=== PATIENT | male | born 1940 | race Caucasian/White ===

== ENCOUNTER 2020-08-31 10:56 | Outpatient (CLI) | payer MEDICARE, SELFPAY ==
[2020-08-31 11:46] LABS: Basophils Absolute Auto 0.1 K/mm3 (0.0-0.1); Basophils Percent Auto 0.5 % (0.2-1.2); Eosinophils Absolute Auto 0.3 K/mm3 (0-0.3); Eosinophils Percent Auto 2.6 % (0-4.4); Hematocrit 42.5 % (42.0-52.0); Hemoglobin 15.4 g/dL (14.0-18.0); Immature Granulocyte Absolute 0.05 K/mm3 (0.00-0.031); Immature Granulocyte Percent A 0.5 % (0-0.5); Lymphocytes Absolute Auto 2.68 K/mm3 (0.9-3.2); Lymphocytes Percent Auto 28.4 % (18.3-44.2); Mean Corpuscular HGB Conc 36.2 g/dl (32-36); Mean Corpuscular Volume 93.8 fl (80-100); Mean Platelet Volume 8.7 fl (7.4-10.4); Monocytes Absolute Auto 0.8 K/mm3 (0.1-0.6); Monocytes Percent Auto 8.4 % (2.6-8.5); Neutrophils Absolute Auto 5.6 K/mm3 (1.3-6.7); Neutrophils Percent Auto 59.6 % (45.5-73.1); Platelet Count Result 279 k/mm3 (150-375); Red Blood Count 4.53 M/mm3 (4.6-6.20); Red Cell Distribution Width 12.5 % (11.5-14.5); White Blood Count 9.5 K/mm3 (4.5-10.0)
[2020-08-31 11:59] LABS: Alanine Aminotransferase 19 U/L (4-50); Albumin Level 4.3 g/dL (3.5-5.1); Alkaline Phosphatase 80 U/L (38-126); Anion Gap 9 mmol/L (8-16); Aspartate Amino Transferase 27 U/L (17-59); Bilirubin,Total 0.9 mg/dL (0.2-1.3); Blood Urea Nitrogen 20 mg/dL (9-20); Calcium 9.3 mg/dL (8.4-10.2); Carbon Dioxide 32 mmol/L (22-30); Chloride 92 mmol/L (98-107); Cholesterol 211 mg/dL (0-200); Estimated Glomerular Filt Rate 53; Glucose 108 mg/dL (75-110); HDL Direct 84 mg/dL; Potassium 3.7 mmol/L (3.4-5.0); Sodium 133 mmol/L (137-145); Triglycerides 147 mg/dL (<150)
[2020-08-31 12:10] LABS: LDL Cholesterol Direct 105 mg/dL
== END 2020-08-31 10:57 | disposition home or self-care (01) ==
PROVIDERS: PCP Internal Medicine; Visit Provider Clinical Nurse Specialist
DX: I10 Essential (primary) hypertension (principal); Z12.5 Encounter for screening for malignant neoplasm of prostate
CPT/HCPCS: 36415; 80053; 80061; 84153; 85025; G0103

== ENCOUNTER 2020-11-04 15:14 | Emergency (ER) | payer MEDICARE, SELFPAY ==
[2020-11-04 15:15] VITALS: BP 155/117; PULSE 97; RESP 18; TEMP 37.2; O2SAT 97
--- NOTE | 2020-11-04 15:39 | ED.URI ---
HPI - URI/Sore Throat General Chief Complaint: Upper Respiratory Infection Stated Complaint: COUGH Time Seen by Provider: 11/04/20 15:39 Source: patient and RN notes reviewed Mode of arrival: ambulatory Limitations: no limitations History of Present Illness HPI Narrative: 79-year-old male presents concern for 5-day history of cough, fatigue, decreased appetite. Reports a Covid exposure last week. He denies fever, chills, sweats, body ache, loss of sense of taste or smell. Reports history of hypertension, denies tobacco use, history of breathing problems or heart disease MD elicited complaint: cough Related Data Home Medications Medication Instructions Recorded Confirmed amlodipine 5 mg PO DAILY 11/04/20 11/04/20 atenolol-chlorthalidone 25 tablet PO DAILY 11/04/20 11/04/20 lisinopril 20 mg PO DAILY 11/04/20 11/04/20 Allergies Allergy/AdvReac Type Severity Reaction Status Date / Time No Known Allergies Allergy Verified 11/04/20 15:46 Review of Systems Review of Systems: Narrative: CONSTITUTIONAL: Denies malaise, chills, sweats, or fever. Reports fatigue EYES: Denies visual changes, redness, or discharge. ENT: Reports rhinorrhea. Denies congestion, sinus pain, otalgia and sore throat. CARDIOVASCULAR: Denies chest pain, palpitations, or edema. RESPIRATORY: Reports cough. Denies dyspnea. GASTROINTESTINAL: Denies abdominal pain, nausea, vomiting, diarrhea SKIN: Denies rash or itching. MUSCULOSKELETAL: Denies myalgia. NEUROLOGIC: Denies headache. All systems reviewed & are unremarkable except as noted in HPI and below PMFSH Past Medical History Medical History (Updated 11/04/20 @ 15:53 by Christi Sidhu NP) Essential hypertension Surgical History Surgical History (Updated 08/03/20 @ 09:34 by Elsa Perez CMA) H/O eye surgery Family History Family History (Updated 06/23/19 @ 13:13 by DOCTOR UNKNOWN) Sibling Family history of arthritis Social History Social History Smoking status: Former smoker Smoking end date: 10/29/70 Alcohol intake: current Comments At time of signature, agree with nursing past medical, surgical, social and family history. There is no relevant family history pertinent to the presenting complaint Exam Narrative: Exam Narrative: GENERAL: Well-appearing, well-nourished, and in no acute distress. HEAD: Normocephalic EYES: PERRLA, conjunctivae clear ENT: Nares clear. Mucous membranes moist. NECK: Supple. No lymphadenopathy CHEST: Clear to auscultation, breath sounds equal. No wheezing, rhonchi, rales, or stridor. No respiratory distress, speaks in full sentences. HEART: Regular rate and rhythm. No murmur heard. SKIN: Warm, dry, no rash. NEURO: Alert and oriented x3. PSYCH: Normal mood and affect Course Course Emergency Course: Patient is aware of diagnosis, understands and agrees to treatment plan. Anticipatory guidance given. Patient agrees to follow-up as directed and is aware of reasons to seek care at the emergency department. Portions of this record may have been created with voice recognition software Vital Signs Vital signs: Reviewed. MDM - URI/Sore Throat MDM Narrative Medical decision making narrative: Differential diagnosis considered: Soria virus, strep pharyngitis, allergic rhinitis, upper respiratory tract infection, sinusitis, rhinosinusitis, nasopharyngitis. viral pharyngitis, otitis media, otitis externa, pneumonia, bronchitis, viral cough syndrome, viral syndrome, and influenza. Exam findings show no acute concerns or changes; patient is non-toxic appearing and is in no distress. Patient is appropriate for outpatient treatment and follow-up. Lab Data Attestation: I reviewed the patient's lab results. Critical Care Time Critical Care Time Critical Care Time: No Discharge Plan Discharge Clinical Impression: COVID-19, Cough Patient Disposition: Home, Self-Care Condition: Stable Instructions: COVID-19 (Coronavirus Disease 201
[2020-11-04 16:00] VITALS: BP 181/112
== END 2020-11-04 16:00 | disposition home or self-care (01) ==
PROVIDERS: Emergency Provider Nurse Practitioner; PCP Internal Medicine
DX: U07.1 COVID-19 (principal); I10 Essential (primary) hypertension; Z87.891 Personal history of nicotine dependence
CPT/HCPCS: 87426; 99213; C9803; G0463

== ENCOUNTER 2021-09-16 11:38 | Outpatient (CLI) | payer MEDICARE, SELFPAY ==
[2021-09-16 12:08] LABS: Hematocrit 44.6 % (42.0-52.0); Hemoglobin 16.1 g/dL (14.0-18.0); Immature Granulocyte Percent A 0.3 % (0-0.5); Mean Corpuscular HGB Conc 36.1 g/dl (32-36); Mean Corpuscular Hemoglobin 33.9 pg (26-34); Mean Corpuscular Volume 93.9 fl (80-100); Mean Platelet Volume 8.7 fl (7.4-10.4); Platelet Count Result 306 k/mm3 (150-375); Red Blood Count 4.75 M/mm3 (4.6-6.20); White Blood Count 8.9 K/mm3 (4.5-10.0)
[2021-09-16 12:09] LABS: Basophils Percent Auto 0.5 % (0.2-1.2); Eosinophils Absolute Auto 0.2 K/mm3 (0-0.3); Eosinophils Percent Auto 2.5 % (0-4.4); Immature Granulocyte Absolute 0.03 K/mm3 (0.00-0.031); Lymphocytes Absolute Auto 2.48 K/mm3 (0.9-3.2); Monocytes Absolute Auto 0.7 K/mm3 (0.1-0.6); Monocytes Percent Auto 7.7 % (2.6-8.5); Neutrophils Absolute Auto 5.4 K/mm3 (1.3-6.7)
[2021-09-16 12:20] LABS: Alanine Aminotransferase 17 U/L (4-50); Albumin Level 4.6 g/dL (3.5-5.1); Alkaline Phosphatase 73 U/L (38-126); Anion Gap 5 mmol/L (8-16); Aspartate Amino Transferase 26 U/L (17-59); Bilirubin,Total 0.8 mg/dL (0.2-1.3); Blood Urea Nitrogen 16 mg/dL (9-20); Calcium 9.7 mg/dL (8.4-10.2); Carbon Dioxide 31 mmol/L (22-30); Chloride 97 mmol/L (98-107); Cholesterol 221 mg/dL (0-200); Estimated Glomerular Filt Rate > 60; Glucose 103 mg/dL (65-110); HDL Direct 93 mg/dL; Sodium 133 mmol/L (137-145); Triglycerides 101 mg/dL (<150)
[2021-09-16 12:31] LABS: LDL Cholesterol Direct 105 mg/dL
== END 2021-09-16 11:39 | disposition home or self-care (01) ==
PROVIDERS: PCP Internal Medicine; Visit Provider Clinical Nurse Specialist
DX: I10 Essential (primary) hypertension (principal)
CPT/HCPCS: 36415; 80053; 80061; 85025

== ENCOUNTER 2022-09-25 12:54 | Outpatient (CLI) | payer MEDICARE, SELFPAY ==
[2022-09-25 19:53] LABS: Basophils Percent Auto 0.5 % (0.2-1.2); Eosinophils Absolute Auto 0.1 K/mm3 (0-0.3); Eosinophils Percent Auto 1.7 % (0-4.4); Hematocrit 45.7 % (42.0-52.0); Hemoglobin 15.7 g/dL (14.0-18.0); Immature Granulocyte Absolute 0.02 K/mm3 (0.00-0.031); Immature Granulocyte Percent A 0.3 % (0-0.5); Lymphocytes Absolute Auto 1.93 K/mm3 (0.9-3.2); Lymphocytes Percent Auto 25.9 % (18.3-44.2); Mean Corpuscular HGB Conc 34.4 g/dl (32-36); Mean Corpuscular Hemoglobin 33.1 pg (26-34); Mean Corpuscular Volume 96.4 fl (80-100); Mean Platelet Volume 9.4 fl (7.4-10.4); Monocytes Absolute Auto 0.7 K/mm3 (0.1-0.6); Monocytes Percent Auto 8.8 % (2.6-8.5); Neutrophils Absolute Auto 4.7 K/mm3 (1.3-6.7); Neutrophils Percent Auto 62.8 % (45.5-73.1); Platelet Count Result 309 k/mm3 (150-375); Red Blood Count 4.74 M/mm3 (4.6-6.20); Red Cell Distribution Width 12.7 % (11.5-14.5); White Blood Count 7.5 K/mm3 (4.5-10.0)
[2022-09-25 20:13] LABS: Alanine Aminotransferase 19 U/L (6-50); Albumin Level 4.3 g/dL (3.5-5.1); Alkaline Phosphatase 64 U/L (38-126); Anion Gap 8 mmol/L (8-16); Aspartate Amino Transferase 52 U/L (17-59); Bilirubin,Total 1.2 mg/dL (0.2-1.3); Blood Urea Nitrogen 18 mg/dL (9-20); Carbon Dioxide 29 mmol/L (22-30); Chloride 99 mmol/L (98-107); Cholesterol 217 mg/dL (0-200); Estimated Glomerular Filt Rate > 60; Glucose 95 mg/dL (65-110); HDL Direct 72 mg/dL; Potassium 4.6 mmol/L (3.4-5.0); Sodium 136 mmol/L (137-145); Triglycerides 73 mg/dL (<150)
[2022-09-25 20:24] LABS: LDL Cholesterol Direct 102 mg/dL
== END 2022-09-25 12:55 | disposition home or self-care (01) ==
LOC: ANHGOSHLAB 12:58
PROVIDERS: PCP Internal Medicine; Visit Provider Clinical Nurse Specialist
DX: I10 Essential (primary) hypertension (principal)
CPT/HCPCS: 36415; 80053; 80061; 85025

== ENCOUNTER 2023-01-03 18:13 | Observation (INO) | payer MEDICARE, SELFPAY ==
[2023-01-03] VITALS (10 sets, daily range): BP systolic 181–241; BP diastolic 91–112; PULSE 74–93; RESP 18–23; TEMP 36.6; O2SAT 96–99
--- NOTE | ~2023-01-03 | XR_ITS ---
EXAMINATION: XR chest 1V Exam Date/Time: 01/03/2023 20:55 WELL SERVICE PUMP EQUIPMENT OPERATOR HISTORY: Pt seen for hypertension, dizziness, headache. Comparison: None available. RESULT: Lines, tubes, and devices: None. Lungs and pleura: Senescent changes. Streaky subsegmental opacities in the right lung base. Calcifie d right midlung granuloma. Cardiomediastinal silhouette: Arch calcification. Dilated central pulmonary arteries as can be seen with only arterial hypertension. Calcified hilar nodes. Other: No acute osseous or upper abdominal finding. IMPRESSION: Subsegmental consolidation/atelectasis in the right lung base. Reviewed, dictated and finalized at location K. SERVICE PUMP EQUIPMENT OPERATOR
--- NOTE | ~2023-01-03 | CT_ITS ---
EXAMINATION: CT brain wo con DATE: 01/03/2023 20:58 INDICATION: hypertension, MERAZ . TECHNIQUE: Computed tomography (CT) of the head was performed without intravenous contrast. The mA wa s adjusted according to patient size. Iterative reconstruction technique was employed. The dose-lengt h product was 605.33 mGy-cm. COMPARISON: None. FINDINGS: No acute intracranial hemorrhage or extra-axial fluid collection. No hydrocephalus, mass, or herniation. No acute ischemic infarct. Unremarkable dural venous sinus attenuation. No acute osseous abnormality. Bilateral mastoid fluid, the remaining aerated spaces are clear. Mild atrophy and chronic white matter change. Atherosclerotic intracranial calcification. 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 Bilateral lens replacements. Spherical outpouching along the post erior aspect of the right globe with mixed density content including gas densities. IMPRESSION: No acute intracranial process. Focal outpouching along the posterior aspect of the right globe contai ethel gas densities, presumably related to prior ophthalmic procedure, correlate with history. Reviewed, dictated and finalized at location K. WALL SHEARER OPERATOR IMPRESSION: No acute intracranial process. Focal outpouching along the posterior aspect of the right globe containing gas densities, presumably related to prior ophthalmi c procedure, correlate with history.
--- NOTE | 2023-01-03 18:39 | ECG_ITS ---
Measurements Intervals [place] Rate: 87 P: 47 [place]: 184 QRS: -32 QRSD: 92 T: 46 QT: 350 QTc: 421 Interpretive Statements SINUS RHYTHM LEFT AXIS DEVIATION VOLTAGE CRITERIA FOR LVH CONSIDER INFERIOR INFARCT, AGE INDETERMINATE ANTEROSEPTAL INFARCT, AGE INDETERMINATE ABNORMAL ECG NO PREVIOUS ECG AVAILABLE FOR COMPARISON Electronically Signed On 01-04-2023 14:55:57 PAINTING WORKER by Michael Romo D.O.
[2023-01-03 19:09] LABS: Basophils Absolute Auto 0.1 K/mm3 (0.0-0.1); Basophils Percent Auto 0.5 % (0.2-1.2); Eosinophils Absolute Auto 0.1 K/mm3 (0-0.3); Eosinophils Percent Auto 0.9 % (0-4.4); Hematocrit 49.7 % (42.0-52.0); Hemoglobin 17.2 g/dL (14.0-18.0); Immature Granulocyte Absolute 0.06 K/mm3 (0.00-0.031); Immature Granulocyte Percent A 0.6 % (0-0.5); Lymphocytes Absolute Auto 2.44 K/mm3 (0.9-3.2); Lymphocytes Percent Auto 25.7 % (18.3-44.2); Mean Corpuscular HGB Conc 34.6 g/dl (32-36); Mean Corpuscular Hemoglobin 33.4 pg (26-34); Mean Corpuscular Volume 96.5 fl (80-100); Mean Platelet Volume 9.9 fl (7.4-10.4); Monocytes Absolute Auto 0.6 K/mm3 (0.1-0.6); Monocytes Percent Auto 6.5 % (2.6-8.5); Neutrophils Absolute Auto 6.2 K/mm3 (1.3-6.7); Neutrophils Percent Auto 65.8 % (45.5-73.1); Platelet Count Result 275 k/mm3 (150-375); Red Blood Count 5.15 M/mm3 (4.6-6.20); Red Cell Distribution Width 12.5 % (11.5-14.5); White Blood Count 9.5 K/mm3 (4.5-10.0)
[2023-01-03 19:18] LABS: Partial Thromboplastin Time 27.7 SECONDS (22.3-36.8); Prothrombin Time 12.7 Seconds (11.1-14.7)
[2023-01-03 19:27] LABS: Alanine Aminotransferase 20 U/L (6-50); Albumin Level 4.8 g/dL (3.5-5.1); Alkaline Phosphatase 72 U/L (38-126); Anion Gap 5 mmol/L (8-16); Aspartate Amino Transferase 26 U/L (17-59); Bilirubin,Total 0.9 mg/dL (0.2-1.3); Blood Urea Nitrogen 17 mg/dL (9-20); Calcium 9.2 mg/dL (8.4-10.2); Carbon Dioxide 30 mmol/L (22-30); Chloride 98 mmol/L (98-107); Estimated CRCL calculation 60 ml/min; Estimated Glomerular Filt Rate > 60; Glucose 118 mg/dL (65-110); Lipase 60 U/L (23-300); Potassium 3.7 mmol/L (3.4-5.0); Sodium 133 mmol/L (137-145)
[2023-01-03 19:36] LABS: Troponin I < 0.012 ng/mL (0.000-0.034)
--- NOTE | 2023-01-03 20:47 | ED.RECABL ---
HPI - Recheck/Abnormal Lab/Rx General Chief Complaint: Recheck/Abnormal Lab/Rx Stated Complaint: high blood pressure Time Seen by Provider: 01/03/23 19:36 History of Present Illness HPI narrative: Patient is an 82-year-old male with a history of hypertension presenting with high blood pressure. Patient states that earlier today they checked his blood pressure and his systolic was in the 230s. His states that it remained in the 230s for several hours so she became concerned for a stroke. States that he has had intermittent headaches and had an episode of dizziness yesterday. Currently, the patient denies any complaints. States he would like to go home. Denies headache, numbness or weakness, vision changes, slurred speech, gait difficulties, chest pain, shortness of breath, abdominal pain, nausea or vomiting, diarrhea, leg swelling. Related Data Home Medications Medication Instructions Recorded Confirmed atenolol 50 mg tablet 50 mg PO DAILY 01/04/23 01/04/23 lisinopril 40 mg tablet 40 mg PO DAILY 01/04/23 01/04/23 Allergies Allergy/AdvReac Type Severity Reaction Status Date / Time No Known Allergies Allergy Verified 09/27/22 10:06 Review of Systems Review of Systems: All systems reviewed & are unremarkable except as noted in HPI and below PMFSH Past Medical History Medical History Cataract Essential hypertension Surgical History Surgical History H/O cataract removal with insertion of prosthetic lens H/O eye surgery Family History Family History Sibling Family history of arthritis Social History Social History Smoking status: Never smoker Smoking end date: 10/29/70 Alcohol intake: current Drinks per week: 35 Substance use: never Substance use type: does not use Lack of Transportation: No Lack of Food: Never True Current Housing: I Have Housing Concerned About Future Housing: No Difficulty Paying Gas/Electric Bills: No Difficulty Paying for Meds: No Currently Unemployed: No Education: Bachelor's Degree Difficulty w/ Childcare or Family Care: No Living arrangements: with family Gender identity (if verbalized by the patient): Male Spiritual care concerns: No Exam Narrative: GENERAL: Well-appearing, well-nourished, and in no acute distress. HEAD: Normocephalic, atraumatic. EYES: PERRLA and EOMI. ENT: Nares clear, no rhinorrhea or epistaxis. Mucous membranes moist. NECK: Supple. CHEST: Clear to auscultation. No respiratory distress. HEART: Regular rate and rhythm. No murmur heard. Normal peripheral pulses. ABDOMEN: Soft, nontender, nondistended EXTREMITIES: Normal range of motion. No edema. SKIN: Warm, dry, no rash. NEURO: No focal deficits. Alert and oriented x3. PSYCH: Normal mood and affect. Course Vital Signs Vital signs: Vital Signs Temperature 98 F 01/03/23 18:34 Pulse Rate 93 01/03/23 18:34 Respiratory Rate 18 01/03/23 18:34 Blood Pressure 241/107 H 01/03/23 18:34 Pulse Oximetry 98 01/03/23 18:34 Oxygen Delivery Room Air 01/03/23 18:34 Temperature 97.8 F 01/04/23 12:00 Pulse Rate 81 01/04/23 16:00 Respiratory Rate 16 01/04/23 12:00 Blood Pressure 156/74 H 01/04/23 12:00 Pulse Oximetry 98 01/04/23 12:00 Oxygen Delivery Room Air 01/04/23 16:00 MDM - Recheck/Abnormal Lab/Rx MDM Narrative Medical decision making narrative: Patient is an 82-year-old male presenting with high blood pressure. Patient is hypertensive, pressures currently 199/94. Remainder of vitals are within normal limits. Patient denies any complaints right now. EKG per my interpretation shows normal sinus rhythm, left axis deviation, no ST elevations or depressions. Blood work is within normal limits. Troponin is undetectable
[2023-01-03 22:24] LABS: Troponin I 0.037 ng/mL (0.000-0.034)
[2023-01-03] MEDS: ASPIRIN 81 MG CHEWABLE TABLET 324 MG PO (23:00)
[2023-01-04] VITALS (15 sets, daily range): BP systolic 156–235; BP diastolic 74–96; PULSE 62–99; RESP 14–28; TEMP 36.2–37.3; O2SAT 94–98; BMI 31.9; BMI 32.8
--- NOTE | 2023-01-04 | ECHO_ITS ---
Patient Info Name: Yury Everett Age: 82 years : 1940 Gender: Male Ht: 66 in Wt: 203 lbs BSA: 2.10 m2 HR: 83 bpm BP: 195 / 89 mmHg Heart Rhythm: Sinus Rhythm Technical Quality: Fair Exam Date: 01/04/2023 12:03 PM Exam Location: [facility] Pulmonary Exam Room: 211 Patient Status: Inpatient Admit Date: 01/03/2023 Staff Ordering Physician: Maulik Davalos MD [employer] Operator: Myla Kearns RDCS Attending Provider: Librado Angel MD Exam Type: CA echo doppler color flow Study Info Indications - elevated troponins htn Complete two-dimensional, color flow and Doppler transthoracic echocardiogram is performed. Summary 1. Complete two-dimensional, color flow and Doppler transthoracic echocardiogram is performed. 2. Left ventricular chamber dimension is normal. 3. Left ventricular systolic function is normal, estimated at 50-55%. 4. There is mildly increased left ventricular wall thickness. 5. The left ventricular diastolic function is grade I diastolic dysfunction. 6. Right ventricular systolic function is normal. 7. There is moderate aortic valve calcification. 8. There is mild aortic valve regurgitation. 9. There is mild tricuspid valve regurgitation. Left Ventricle Left ventricular chamber dimension is normal. Left ventricular systolic function is normal, estimated at 50-55%. There is mildly increased left ventricular wall thickness. The left ventricular diastolic function is grade I diastolic dysfunction. Right Ventricle Right ventricular chamber dimension is normal. Right ventricular systolic function is normal. Left Atria Left atrial chamber dimension is normal. Right Atria Right atrial chamber dimension is normal. Atrial Septum Intact interatrial septum visualized by color flow imaging. Aortic Valve The aortic valve is probable trileaflet. There is no aortic valve stenosis. There is mild aortic valve regurgitation. There is moderate aortic valve calcification. Pulmonic Valve The pulmonic valve is not well visualized. Mitral Valve The mitral valve has thickened leaflets. There is no mitral valve stenosis. There is trace mitral valve regurgitation. The mitral valve annulus is mildly calcified. Tricuspid Valve There is mild tricuspid valve regurgitation. Pericardium/Pleural The pericardium appears epicardial fat pad. There is small anterior pericardial effusion. Inferior Vena Cava Normal inferior vena cava with >50% collapse upon inspiration consistent with normal right atrial pressure, 3 mmHg. Aorta The aortic root size at the sinus of Valsalva is normal. Left Ventricular Outflow Tract Name Value Normal LVOT 2D LVOT Diameter 2.1 cm LVOT Doppler LVOT Peak Gradient 6 mmHg LVOT Mean Gradient 3 mmHg LVOT VTI 25 cm LVOT VTI/AV VTI Ratio 1.0 LVOT Stroke Volume 89 ml LVOT CO 17.9 l/min LVOT CI 8.5 l/min/m2 Pulmonic Valve ----
--- NOTE | 2023-01-04 00:09 | ADMGEN ---
This patient, Yury Everett, was admitted to IMU Room 211-01 at 0009. Patient/family oriented to hospital policies and general routines including ID bracelet, bed and alarms, visiting hours, pain management, procedures, bathroom and other care routines, personal items, smoking policy, room service/diet, and visiting hours. Information on how to activate the Rapid Response Team has been discussed. Patient/Family are encouraged to report perceived risks to care and to ask questions if they do not understand what they are told or what they should do.
[2023-01-04 01:55] LABS: Troponin I 0.051 ng/mL (0.000-0.034)
--- NOTE | 2023-01-04 08:22 | ECG_ITS ---
Measurements Intervals [place] Rate: 91 P: 66 [place]: 174 QRS: -34 QRSD: 90 T: 17 QT: 359 QTc: 443 Interpretive Statements SINUS RHYTHM VOLTAGE CRITERIA FOR LVH INFERIOR INFARCT, AGE INDETERMINATE ANTEROSEPTAL INFARCT, AGE INDETERMINATE ABNORMAL ECG NO PREVIOUS ECG AVAILABLE FOR COMPARISON Electronically Signed On 01-04-2023 9:49:43 DISABILITY REPRESENTATIVE by Michael Romo D.O.
[2023-01-04] MEDS: ENOXAPARIN 100 MG/ML SYRINGE 90 MG SUB-Q (09:11)
[2023-01-04] MEDS: lisinopriL 20 MG TABLET 40 MG PO (09:12)
[2023-01-04] MEDS: atenoloL 50 MG TABLET PO ×2 (09:12→17:46)
[2023-01-04] MEDS: hydrALAZINE HCL 20 MG/ML VIAL 10 MG IV PUSH (09:13)
[2023-01-04] MEDS: ASPIRIN 81 MG ENTERIC TABLET PO (09:13)
--- NOTE | 2023-01-04 09:42 | PM.IMHP ---
H&P: HPI History of Present Illness Date/Time: 01/04/23 09:42 Chief Complaint: Elevated blood pressure Narrative: Patient is an 82-year-old male with a history of hypertension presenting with high blood pressure that he has noticed since past few days. His blood pressure systolic has been to 30s. He denies any chest pain or shortness of breath. He had been having intermittent headaches. No vision symptoms. Some nausea as there but no vomiting. Denies any abdominal pain leg swelling. He has been having some intermittent dry cough for which he has been taking some sinus medication [id number]. Review of Systems Review of Systems: - CONSTITUTIONAL: Denies weight loss, fever and chills. - HEENT: Denies changes in vision and hearing - RESPIRATORY: Denies SOB and reports cough. - CV: Denies palpitations and CP. - GI: Denies abdominal pain, nausea, vomiting and diarrhea. - : Denies dysuria and urinary frequency. - MSK: Denies myalgia and joint pain. - SKIN: Denies rash and pruritus. - NEUROLOGICAL: Reports intermittent headache and denies syncope. - PSYCHIATRIC: Denies recent changes in mood. Denies anxiety and depression. [facility] Past Medical History Medical History Cataract Essential hypertension Surgical History Surgical History H/O cataract removal with insertion of prosthetic lens H/O eye surgery Family History Family History Sibling Family history of arthritis Social History Social History Smoking status: Never smoker Smoking end date: 10/29/70 Alcohol intake: current Drinks per week: 35 Substance use: never Substance use type: does not use Lack of Transportation: No Lack of Food: Never True Current Housing: I Have Housing Concerned About Future Housing: No Difficulty Paying Gas/Electric Bills: No Difficulty Paying for Meds: No Currently Unemployed: No Education: Bachelor's Degree Difficulty w/ Childcare or Family Care: No Living arrangements: with family Gender identity (if verbalized by the patient): Male Spiritual care concerns: No Meds Home Medications and Allergies Home Medications Medication Instructions Recorded Confirmed Type atenolol 50 mg tablet 50 mg PO DAILY 01/04/23 01/04/23 History lisinopril 40 mg tablet 40 mg PO DAILY 01/04/23 01/04/23 History Allergies Allergy/AdvReac Type Severity Reaction Status Date / Time No Known Allergies Allergy Verified 09/27/22 10:06 Vital Signs Vital Signs - 24 hr 01/03/23 18:34 01/03/23 19:16 01/03/23 19:31 Temperature 98 F Pulse Rate 93 83 80 Respiratory Rate 18 20 23 H Blood Pressure 241/107 H 201/101 H 193/91 H Pulse Oximetry 98 97 96 Oxygen Delivery Room Air 01/03/23 19:46 01/03/23 20:01 01/03/23 20:31 Temperature Pulse Rate 82 74 78 Respiratory Rate 23 H 21 H 20 Blood Pressure 197/92 H 181/91 H 199/94 H Pulse Oximetry 96 97 96 Oxygen Delivery 01/03/23 21:26 01/03/23 21:31 01/03/23 23:02 Temperature Pulse Rate 82 83 87 Respiratory Rate 18 19 20 Blood Pressure 212/112 H 210/100 H 186/99 H Pulse Oximetry 96 97 99 Oxygen Delivery 01/03/23 23:54 01/04/23 00:15 01/04/23 00:10 Temperature 97.2 F L Pulse Rate 90 72 Respiratory Rate 18 14 Blood Pressure 194/105 H 214/84 H Pulse Oximetry 98 97 Oxygen Delivery 01/04/23 00:10 01/04/23 02:00 01/04/23 04:00 Temperature Pulse Rate 78 77 80 Respiratory Rate 14 Blood Pressure Pulse Oximetry 97 Oxygen Delivery Room Air 01/04/23 04:00 01/04/23 04:00 01/04/23 06:00 Temperature 97.6 F Pulse Rate 80 91 85 Respiratory Rate 14 14 Blood Pressure 235/96 H Pulse Oximetry 97 97 Oxygen Delivery Room Air 01/04/23 08:00 01/04/23 09:12
[2023-01-04] MEDS: LORATADINE 10 MG TABLET PO (12:31)
[2023-01-04] MEDS: amLODIPine BESYLATE 5 MG TABLET PO (12:31)
[2023-01-04 13:23] LABS: Influenza A QL RT-PCR Negative (Negative); Influenza B QL RT-PCR Negative (Negative); RSV RNA, RT-PCR Negative (Negative); SARS-CoV-2 RNA PCR Negative
--- NOTE | 2023-01-04 14:48 | PM.CNCAR ---
Assessment and Plan Assessment and plan (1) Hypertensive urgency: Code(s): I16.0 - Hypertensive urgency Status: Acute Assessment and Plan: Acute hypertensive urgency. Blood pressure has now improved. Agree with Lisinopril 40mg. Agree with Amlodipine 5mg. If additional blood pressure control is needed, this can be increased. Patient on Atenolol 50mg BID. Atenolol is not a preferred agent for management of hypertension. If blood pressure is not controlled, recommend switching Atenolol to a thiazide diuretic (such as HCTZ or chlorthalidone). Recommendations/plan discussed with the Hospitalist. (2) Elevated troponin: Code(s): R77.8 - Other specified abnormalities of plasma proteins Status: Acute Assessment and Plan: In the setting of hypertensive urgency. Patient without chest pain or other cardiac symptoms. EKG without ischemic changes. No evidence of ACS. Likely due to demand ischemia from hypertensive urgency. Echo ordered and pending. If echocardiogram without significant abnormality, no additional workup. Recommendations/plan discussed with the Hospitalist. History of Present Illness History of Present Illness Consult date/time: 01/04/23 14:48 Requesting physician: Maulik Davalos MD Consult reason: Other (Elevated troponin) Reason For Visit: elevated troponin Narrative: We are consulted for elevated troponin. This is an 82-year-old male with a history of hypertension who presented with hypertensive urgency. No chest pain or shortness of breath. SBP noted to be as high as the 240s on presentation. Labs significant for mild troponin elevation of 0.037 --> 0.051. EKG with sinus rhythm, voltage criteria for LVH, possible old inferior infarction. No ischemic changes. Patient restarted on home dose of Lisinopril 40mg. His home atenolol increased from 50mg QD to 50mg BID. Amlodipine 5mg added. Patient with SBP now in the 150s. Upon my evaluation, patient is feeling well and is without any complaints. is at bedside. Review of Systems Review of Systems: All systems reviewed & are unremarkable except as noted in HPI and below (HPI) [facility] Past Medical History Medical History Cataract Essential hypertension Surgical History Surgical History H/O cataract removal with insertion of prosthetic lens H/O eye surgery Family History Family History Sibling Family history of arthritis Social History Social History Smoking status: Never smoker Smoking end date: 10/29/70 Alcohol intake: current Drinks per week: 35 Substance use: never Substance use type: does not use Lack of Transportation: No Lack of Food: Never True Current Housing: I Have Housing Concerned About Future Housing: No Difficulty Paying Gas/Electric Bills: No Difficulty Paying for Meds: No Currently Unemployed: No Education: Bachelor's Degree Difficulty w/ Childcare or Family Care: No Living arrangements: with family Gender identity (if verbalized by the patient): Male Spiritual care concerns: No Meds Home Medications and Allergies Home Medications Medication Instructions Recorded Confirmed Type atenolol 50 mg tablet 50 mg PO DAILY 01/04/23 01/04/23 History lisinopril 40 mg tablet 40 mg PO DAILY 01/04/23 01/04/23 History Allergies Allergy/AdvReac Type Severity Reaction Status Date / Time No Known Allergies Allergy Verified 09/27/22 10:06 Vital Signs Vital Signs - 24 hr 01/03/23 18:34 01/03/23 19:16 01/03/23 19:31 Temperature 36.6 C Pulse Rate 93 83 80 Respiratory Rate 18 20 23 H Blood Pressure 241/107 H 201/101 H 193/91 H Pulse Oximetry 98 97 96 Oxygen Delivery Room Air 01/03/23 19:46 01/03/23 20:01 01/03/23 20:31 Temperature Pulse
[2023-01-05] VITALS (9 sets, daily range): BP systolic 145–156; BP diastolic 73–83; PULSE 57–88; RESP 16–18; TEMP 36.3–36.6; O2SAT 95–99
[2023-01-05 05:06] LABS: Basophils Absolute Auto 0.1 K/mm3 (0.0-0.1); Basophils Percent Auto 0.7 % (0.2-1.2); Eosinophils Absolute Auto 0.2 K/mm3 (0-0.3); Eosinophils Percent Auto 1.7 % (0-4.4); Hematocrit 46.8 % (42.0-52.0); Hemoglobin 16.3 g/dL (14.0-18.0); Immature Granulocyte Absolute 0.06 K/mm3 (0.00-0.031); Immature Granulocyte Percent A 0.6 % (0-0.5); Lymphocytes Absolute Auto 3.19 K/mm3 (0.9-3.2); Lymphocytes Percent Auto 30.2 % (18.3-44.2); Mean Corpuscular HGB Conc 34.8 g/dl (32-36); Mean Corpuscular Hemoglobin 33.5 pg (26-34); Mean Corpuscular Volume 96.3 fl (80-100); Mean Platelet Volume 9.1 fl (7.4-10.4); Monocytes Absolute Auto 0.9 K/mm3 (0.1-0.6); Monocytes Percent Auto 8.2 % (2.6-8.5); Neutrophils Absolute Auto 6.2 K/mm3 (1.3-6.7); Neutrophils Percent Auto 58.6 % (45.5-73.1); Platelet Count Result 288 k/mm3 (150-375); Red Blood Count 4.86 M/mm3 (4.6-6.20); Red Cell Distribution Width 12.7 % (11.5-14.5); White Blood Count 10.6 K/mm3 (4.5-10.0)
[2023-01-05 05:17] LABS: Alanine Aminotransferase 19 U/L (6-50); Albumin Level 4.1 g/dL (3.5-5.1); Alkaline Phosphatase 60 U/L (38-126); Anion Gap 7 mmol/L (8-16); Aspartate Amino Transferase 25 U/L (17-59); Bilirubin,Total 1.5 mg/dL (0.2-1.3); Blood Urea Nitrogen 21 mg/dL (9-20); Calcium 8.8 mg/dL (8.4-10.2); Carbon Dioxide 28 mmol/L (22-30); Chloride 100 mmol/L (98-107); Estimated CRCL calculation 45 ml/min; Estimated Glomerular Filt Rate 58; Glucose 100 mg/dL (65-110); Magnesium 2.2 mg/dL (1.6-2.3); Potassium 3.4 mmol/L (3.4-5.0); Sodium 135 mmol/L (137-145)
[2023-01-05] MEDS: FLUTICASONE PROPIONATE 0.05% NA SPR 16 GM BTL (*BKC) 1 SPRAY NASAL (09:10)
[2023-01-05] MEDS: ASPIRIN 81 MG ENTERIC TABLET PO (09:12)
[2023-01-05] MEDS: lisinopriL 20 MG TABLET 40 MG PO (09:12)
[2023-01-05] MEDS: amLODIPine BESYLATE 5 MG TABLET PO (09:12)
[2023-01-05] MEDS: atenoloL 50 MG TABLET PO (09:12)
[2023-01-05] MEDS: LORATADINE 10 MG TABLET PO (09:18)
--- NOTE | 2023-01-05 12:12 | PM.DS ---
DS: Admitting Diagnosis Discharge Date 01/05/2023 Admitting Diagnosis elevated blood pressure DS: Discharge Diagnosis Discharge Diagnosis (1) Hypertension: Code(s): I10 - Essential (primary) hypertension (2) Elevated troponin: Code(s): R77.8 - Other specified abnormalities of plasma proteins Status: Acute DS: Summary Hospital Course Hospital Course: # hypertensive urgency CT head is negative.? IV hydralazine p.r.n..? Atenolol and lisinopril.? Was tachycardic in the ER will up titrate to 100 mg daily at all 5 mg daily blood pressure stabilized. Echo without any significant abnormality. # elevated troponin could be from elevated high blood pressure.? Add hydralazine p.r.n. resume blood pressure medication atenolol and lisinopril.? EKG with ST-T changes in inferior lead.? Cardiology consultation . Received a dose of Lovenox. Likely demand ischemia due to elevated blood pressure not suspected to ACS. # right knee nose cough suggestive acute URI.? Flonase nasal spray add Claritin . COVID and flu was negative.? Chest x-rays negative # dVT prophylaxis Lovenox # code status full code Time Spent with Patient Time attestation: Total time spent providing and/or coordinating discharge services: 30 minutes Exam Narrative: GENERAL: Well-appearing, well-nourished, and in no acute distress. HEAD: Normocephalic, atraumatic. EYES: PERRLA and EOMI. ENT: Nares clear, no rhinorrhea or epistaxis.? Mucous membranes moist. NECK: Supple. CHEST: Clear to auscultation.? No respiratory distress. HEART: Regular rate and rhythm.? No murmur heard.? Normal peripheral pulses. ABDOMEN: Soft, nontender, nondistended EXTREMITIES: Normal range of motion.? No edema. SKIN: Warm, dry, no rash. NEURO: No focal deficits.? Alert and oriented x3. PSYCH: Normal mood and affect. DS: Data Data Completed and Pending Completed studies during hospitalization: Exam Type: ? ? CA echo doppler color flow Study Info Indications ?? ? - elevated troponins htn Complete two-dimensional, color flow and Doppler transthoracic echocardiogram is performed. Account #: ? ? [id number] Summary ? 1. Complete two-dimensional, color flow and Doppler transthoracic echocardiogram is performed. ? 2. Left ventricular chamber dimension is normal. ? 3. Left ventricular systolic function is normal, estimated at 50-55%. ? 4. There is mildly increased left ventricular wall thickness. ? 5. The left ventricular diastolic function is grade I diastolic dysfunction. ? 6. Right ventricular systolic function is normal. ? 7. There is moderate aortic valve calcification. ? 8. There is mild aortic valve regurgitation. ? 9. There is mild tricuspid valve regurgitation. Left Ventricle ? Left ventricular chamber dimension is normal. ? Left ventricular systolic function is normal, estimated at 50-55%. ? There is mildly increased left ventricular wall thickness. ? The left ventricular diastolic function is grade I diastolic dysfunction. Right Ventricle ? Right ventricular chamber dimension is normal. ? Right ventricular systolic function is normal. Left Atria ? Left atrial chamber dimension is normal. Right Atria ? Right atrial chamber dimension is normal. Atrial Septum ? Intact interatrial septum visualized by color flow imaging. Aortic Valve ? The aortic valve is probable trileaflet. ? There is no aortic valve stenosis. ? There is mild aortic valve regurgitation. ? There is moderate aortic valve calcification. Pulmonic Valve ? The pulmonic valve is not well visualized. Mitral Valve ? The mitral valve has thickened leaflets. ? There is no mitral valve stenosis. ? There is trace mitral valve regurgitation. ? The mitral valve annulus is mildly calcified. Tricuspid Valve ? There is mild tricuspid valve regurgitation. Pericardium/Pleural ? The pericardium appears epicardial fat pad. ? There is small anterior pericardial effusion. Inferior Vena Cava
== END 2023-01-05 13:10 | disposition home or self-care (01) ==
LOC: ANHED 22:29 → ANHIMU 01-04 00:22
PROVIDERS: Emergency Medicine; Admitting Provider Internal Medicine; Emergency Provider Emergency Medicine; PCP Internal Medicine; Visit Provider Internal Medicine
DX: I16.0 Hypertensive urgency (principal); R51.9 Headache, unspecified; R77.8 Other specified abnormalities of plasma proteins; I08.3 Combined rheumatic disorders of mitral, aortic and tricuspid valves; I11.0 Hypertensive heart disease with heart failure; I50.30 Unspecified diastolic (congestive) heart failure; Z20.822 Contact with and (suspected) exposure to COVID-19; R94.31 Abnormal electrocardiogram [ECG] [EKG]; R91.8 Other nonspecific abnormal finding of lung field; F10.90 Alcohol use, unspecified, uncomplicated; Z79.899 Other long term (current) drug therapy
CPT/HCPCS: 36415; 70450; 71045; 80053; 83690; 83735; 84484; 85025; 85610; 85730; 87637; 93005; 93306; 96372; 96374; 99285; A9270; G0378; J0360; J1650

== ENCOUNTER 2023-01-24 13:25 | Outpatient (CLI) | payer MEDICARE, SELFPAY ==
[2023-01-24 20:05] LABS: Anion Gap 7 mmol/L (8-16); Blood Urea Nitrogen 26 mg/dL (9-20); Carbon Dioxide 28 mmol/L (22-30); Chloride 98 mmol/L (98-107); Estimated Glomerular Filt Rate 42; Glucose 86 mg/dL (65-110); Potassium 3.6 mmol/L (3.4-5.0); Sodium 133 mmol/L (137-145)
== END 2023-01-24 13:26 | disposition home or self-care (01) ==
LOC: ANHGOSHLAB 13:26
PROVIDERS: PCP Internal Medicine; Visit Provider Clinical Nurse Specialist
DX: I10 Essential (primary) hypertension (principal)
CPT/HCPCS: 36415; 80048

== ENCOUNTER 2023-02-01 12:53 | Outpatient (CLI) | payer MEDICARE, SELFPAY ==
[2023-02-01 18:40] LABS: Basophils Absolute Auto 0.1 K/mm3 (0.0-0.1); Basophils Percent Auto 0.7 % (0.2-1.2); Eosinophils Absolute Auto 0.2 K/mm3 (0-0.3); Eosinophils Percent Auto 2.1 % (0-4.4); Hematocrit 46.2 % (42.0-52.0); Hemoglobin 15.7 g/dL (14.0-18.0); Immature Granulocyte Absolute 0.04 K/mm3 (0.00-0.031); Immature Granulocyte Percent A 0.4 % (0-0.5); Lymphocytes Absolute Auto 2.06 K/mm3 (0.9-3.2); Lymphocytes Percent Auto 21.9 % (18.3-44.2); Mean Corpuscular Hemoglobin 33.1 pg (26-34); Mean Corpuscular Volume 97.5 fl (80-100); Mean Platelet Volume 9.1 fl (7.4-10.4); Monocytes Absolute Auto 0.7 K/mm3 (0.1-0.6); Monocytes Percent Auto 7.6 % (2.6-8.5); Neutrophils Absolute Auto 6.3 K/mm3 (1.3-6.7); Neutrophils Percent Auto 67.3 % (45.5-73.1); Platelet Count Result 319 k/mm3 (150-375); Red Blood Count 4.74 M/mm3 (4.6-6.20); Red Cell Distribution Width 12.3 % (11.5-14.5); White Blood Count 9.4 K/mm3 (4.5-10.0)
[2023-02-01 18:48] LABS: Anion Gap 4 mmol/L (8-16); Blood Urea Nitrogen 18 mg/dL (9-20); Calcium 9.1 mg/dL (8.4-10.2); Carbon Dioxide 32 mmol/L (22-30); Chloride 100 mmol/L (98-107); Estimated Glomerular Filt Rate > 60; Glucose 105 mg/dL (65-110); Potassium 4.6 mmol/L (3.4-5.0); Sodium 136 mmol/L (137-145)
== END 2023-02-01 12:54 | disposition home or self-care (01) ==
LOC: ANHGOSHLAB 12:54
PROVIDERS: PCP Internal Medicine; Visit Provider Clinical Nurse Specialist
DX: R94.4 Abnormal results of kidney function studies (principal); I10 Essential (primary) hypertension
CPT/HCPCS: 36415; 80048; 85025

== ENCOUNTER 2023-10-03 12:36 | Inpatient (IN) | payer MEDICARE, SELFPAY ==
[2023-10-03] VITALS (35 sets, daily range): BP systolic 130–150; BP diastolic 70–124; PULSE 89–163; RESP 10–34; TEMP 36.2–36.6; O2SAT 96–100; BMI 31.1
--- NOTE | ~2023-10-03 | XR_ITS ---
Portable chest x-ray Comparison: 01/03/2023 Clinical History: Tachyarrhythmia Findings: Lungs are clear, without focal consolidation or pleural effusion. Cardiomediastinal silho uette is stable. Bones and soft tissues are unremarkable. Impression: Normal chest. Reviewed, dictated and finalized at location . [address] [facility] Impression: Normal chest.
--- NOTE | 2023-10-03 12:38 | ECG_ITS ---
Measurements Intervals [place] Rate: 141 P: AR: 0 QRS: -48 QRSD: 73 T: 61 QT: 258 QTc: 396 Interpretive Statements ATRIAL FIBRILLATION WITH RAPID VENTRICULAR RESPONSE WITH ABERRANT CONDUCTION OR VENTRICULAR PREMATURE COMPLEXES POSSIBLE ANTERIOR MYOCARDIAL INFARCTION , OF INDETERMINATE AGE [30 ms Q WAVE IN V3/V4, OR R < 0.2 mV IN V4] INFERIOR MYOCARDIAL INFARCTION , OF INDETERMINATE AGE [40+ ms Q WAVE AND/OR ST/T ABNORMALITY IN II/aVF] COMPARED TO ECG 01/04/2023 08:49:44 ATRIAL FIBRILLATION NOW PRESENT Electronically Signed On 10-03-2023 15:06:54 [employer] by Liz Lazcano M.D.
--- NOTE | 2023-10-03 12:53 | ED.ARRPALP ---
HPI - Arrhythmia/Palpitations General Chief Complaint: Arrhythmia/Palpitations Stated Complaint: afib, sent from pmd office Time Seen by Provider: 10/03/23 12:53 History of Present Illness HPI narrative: 82 YEARS OLD WHITE MALE WENT FOR ANNUAL CHECKUP TODAY, ASYMPTOMATIC FOUND TO HAVE AFIB WITH RVR. PATIENT SENT TO THE ED FOR FURTHER EVALUATION. ON ARRIVAL PATIENT DENIED ANY SYMPTOMS. HISTORY OF HYPERTENSION, DRINK ALCOHOL DAILY, DOES NOT SMOKE OR USE IS MARIJUANA Related Data Allergies Allergy/AdvReac Type Severity Reaction Status Date / Time No Known Allergies Allergy Verified 01/11/23 11:18 Review of Systems Review of Systems: All systems reviewed & are unremarkable except as noted in HPI and below PMFSH Past Medical History Medical History Cataract Elevated troponin Essential hypertension Herpes simplex type 1 infection Hospital discharge follow-up Hypertensive urgency Preoperative clearance Surgical History Surgical History H/O cataract removal with insertion of prosthetic lens H/O eye surgery Family History Family History Sibling Family history of arthritis Social History Social History Smoking status: Never smoker Smoking end date: 10/29/70 Alcohol intake: current Drinks per week: 35 Substance use: never Substance use type: does not use Lack of Transportation: No Lack of Food: Never True Current Housing: I Have Housing Concerned About Future Housing: No Difficulty Paying Gas/Electric Bills: No Difficulty Paying for Meds: No Currently Unemployed: No Education: Bachelor's Degree Difficulty w/ Childcare or Family Care: No Living arrangements: with family Gender identity (if verbalized by the patient): Male Spiritual care concerns: No Exam Narrative: GENERAL APPEARANCE: WELL-DEVELOPED, WELL-NOURISHED SKIN: NORMAL COLOR HEAD: NORMOCEPHALIC, NONTRAUMATIC EYES: CLEAR CONJUNCTIVA ENT: OROPHARYNX NORMAL, EARS NORMAL, NOSE NORMAL NECK: SUPPLE, NONTENDER CHEST AND RESPIRATORY: AIRWAY PATENT, NO RESPIRATORY DISTRESS, NO ACCESSORY MUSCLE USE HEART: TACHYCARDIA, IRREGULAR IRREGULARITY ABDOMEN: SOFT, NONTENDER, NO ORGANOMEGALY, QUIET BOWEL SOUNDS VASCULAR: NORMAL PERIPHERAL PULSES, NORMAL CAPILLARY REFILL. MUSCULOSKELETAL: NORMAL RANGE OF MOTION, NONTENDER BACK NEUROLOGIC: ALERT AND ORIENTED ?3, FITNESS TECHNICIAN IS NORMAL TESTED, NO GROSS MOTOR DEFICIT Course Reevaluation(s) Reevaluation #1: PATIENT IS STILL ASYMPTOMATIC Date: 10/03/23 Time: 15:02 Vital Signs Vital signs: Vital Signs Temperature 36.6 C 10/03/23 12:39 Pulse Rate 141 H 10/03/23 12:39 Respiratory Rate 18 10/03/23 12:39 Blood Pressure 150/94 H 10/03/23 12:39 Pulse Oximetry 98 10/03/23 12:39 Temperature 36.6 C 10/03/23 12:39 Pulse Rate 104 H 10/03/23 14:58 Respiratory Rate 20 10/03/23 14:58 Blood Pressure 147/93 H 10/03/23 14:58 Pulse Oximetry 96 10/03/23 14:58 MDM - Arrhythmia/Palpitations MDM Narrative Medical decision making narrative: PATIENT REFERRED TO THE EMERGENCY ROOM FOR A SYMPTOMATIC AFIB WITH RVR. VITAL SIGNS ON ARRIVAL UNREMARKABLE PHYSICAL EXAMINATION ABOVE DIFFERENTIAL DIAGNOSIS INCLUDE AFIB WITH RVR SECONDARY TO CORONARY ARTERY DISEASE, HYPERTHYROIDISM, ELECTROLYTE IMBALANCE, STRESS, ANXIETY, EXTRA CAFFEINE, CARDIAC VALVULAR ABNORMALITY. WORKUP TODAY SHOWED NO ACUTE ABNORMALITIES, EKG SHOWED AFIB WITH RVR AT 141. WITH FREQUENT PVCS. ADMIT TO HOSPIT
[2023-10-03] MEDS: dilTIAZem HCl INJ 25 MG/5 ML VIAL 10 MG IV PUSH (13:31)
[2023-10-03] MEDS: dilTIAZem 100 MG/100 ML 100 MG/100 ML BAG IV CONT (13:31)
[2023-10-03 13:32] LABS: Basophils Absolute Auto 0.1 K/mm3 (0.0-0.1); Basophils Percent Auto 0.5 % (0.2-1.2); Eosinophils Percent Auto 0.4 % (0-4.4); Hematocrit 44.5 % (42.0-52.0); Hemoglobin 15.3 g/dL (14.0-18.0); Immature Granulocyte Absolute 0.05 K/mm3 (0.00-0.031); Immature Granulocyte Percent A 0.5 % (0-0.5); Lymphocytes Absolute Auto 1.69 K/mm3 (0.9-3.2); Lymphocytes Percent Auto 18.2 % (18.3-44.2); Mean Corpuscular HGB Conc 34.4 g/dl (32-36); Mean Corpuscular Hemoglobin 32.8 pg (26-34); Mean Corpuscular Volume 95.3 fl (80-100); Mean Platelet Volume 8.8 fl (7.4-10.4); Monocytes Absolute Auto 0.6 K/mm3 (0.1-0.6); Monocytes Percent Auto 6.1 % (2.6-8.5); Neutrophils Absolute Auto 6.9 K/mm3 (1.3-6.7); Neutrophils Percent Auto 74.3 % (45.5-73.1); Platelet Count Result 318 k/mm3 (150-375); Red Blood Count 4.67 M/mm3 (4.6-6.20); Red Cell Distribution Width 12.6 % (11.5-14.5); White Blood Count 9.3 K/mm3 (4.5-10.0)
[2023-10-03 13:43] LABS: Alanine Aminotransferase 18 U/L (6-50); Albumin Level 4.6 g/dL (3.5-5.1); Alkaline Phosphatase 70 U/L (38-126); Anion Gap 11 mmol/L (8-16); Aspartate Amino Transferase 22 U/L (17-59); Bilirubin,Total 0.9 mg/dL (0.2-1.3); Blood Urea Nitrogen 24 mg/dL (9-20); Calcium 9.3 mg/dL (8.4-10.2); Carbon Dioxide 21 mmol/L (22-30); Chloride 102 mmol/L (98-107); Estimated CRCL calculation 39 ml/min; Estimated Glomerular Filt Rate 49; Glucose 109 mg/dL (65-110); Partial Thromboplastin Time 27.1 SECONDS (22.3-36.8); Potassium 4.6 mmol/L (3.4-5.0); Prothrombin Time 13.5 Seconds (11.1-14.7); Sodium 134 mmol/L (137-145)
[2023-10-03 13:55] LABS: NT Pro B Type Natriuretic Pept 998 pg/mL (19.9-100); Troponin I < 0.012 ng/mL (0.000-0.034)
[2023-10-03] MEDS: ENOXAPARIN 100 MG/ML SYRINGE 90 MG SUB-Q (14:12)
[2023-10-03 16:47] LABS: Troponin I < 0.012 ng/mL (0.000-0.034)
[2023-10-03] MEDS: LORazepam INJ (*CRX) 2 MG/ML VIAL 1 MG IV PUSH (17:27)
[2023-10-03 18:23] LABS: Troponin I < 0.012 ng/mL (0.000-0.034)
--- NOTE | 2023-10-03 18:26 | PC.NURSE ---
This patient, Yury Everett, was admitted to IMU Room 212-01 AT 1750. Patient/family oriented to hospital policies and general routines including ID bracelet, bed and alarms, visiting hours, pain management, procedures, bathroom and other care routines, personal items, smoking policy, room service/diet, and visiting hours. Information on how to activate the Rapid Response Team has been discussed. Patient/Family are encouraged to report perceived risks to care and to ask questions if they do not understand what they are told or what they should do.
[2023-10-03 19:33] LABS: Troponin I < 0.012 ng/mL (0.000-0.034)
--- NOTE | 2023-10-03 20:34 | PM.IMHP ---
H&P: HPI History of Present Illness Date/Time: 10/03/23 20:34 Chief Complaint: ATRIAL FIBRILLATION Narrative: THIS IS AN 82-YEAR-OLD MALE WITH PAST MEDICAL HISTORY SIGNIFICANT FOR HYPERTENSION, PATIENT WENT FOR HIS REGULAR CHECKUP TO THE PRIMARY CARE PHYSICIAN AND HE WAS FOUND TO HAVE ATRIAL FIBRILLATION WAS SENT OVER TO EMERGENCY ROOM. PATIENT DENIES PALPITATIONS, SHORTNESS OF BREATH, NO LEG SWELLING, NO CHEST PAIN, NO LIGHTHEADEDNESS, NO SYNCOPE, NO NEAR SYNCOPE, HAS HAD FATIGUE. Portable chest x-ray Comparison: 01/03/2023 Clinical History: Tachyarrhythmia Findings:? Lungs are clear, without focal consolidation or pleural effusion.? Cardiomediastinal silhouette is stable. Bones and soft tissues are unremarkable. ? Impression: ? Normal chest. EKG Rate 141 TN 0 QRSd 73 QT 258 QTc 396 --[place]-- P QRS -48 T 61 ATRIAL FIBRILLATION WITH RAPID VENTRICULAR RESPONSE WITH ABERRANT CONDUCTION OR VENTRICULAR PREMATURE COMPLEXES POSSIBLE ANTERIOR MYOCARDIAL INFARCTION , OF INDETERMINATE AGE [30 ms Q WAVE IN V3/V4, OR R < 0.2 mV IN V4] INFERIOR MYOCARDIAL INFARCTION , OF INDETERMINATE AGE [40+ ms Q WAVE AND/OR ST/T ABNORMALITY IN II/aVF] COMPARED TO ECG 01/04/2023 08:49:44 ATRIAL FIBRILLATION NOW PRESENT Electronically Signed On 10-03-2023 15:06:54 PRODUCTION ADMINISTRATOR by Liz Ortiz Provider: Yevgeniy KLEIN Comment [id number] - Abnormal ECG - Conf Review of Systems Review of Systems: ABNORMAL HEART RATE Constitutional: Constitutional: Denies chills, Reports fatigue, Denies fever(s), Denies malaise, Denies night sweats and Denies weakness Eyes: Eyes: Denies change in vision ENT: Denies dysphagia, Denies vertigo, Denies dizziness and Denies odynophagia Cardiovascular: Cardiovascular: Denies chest pain, Denies radiating jaw, neck or arm pain, Denies palpitations and Denies dyspnea Respiratory: Respiratory: Denies cough and Denies dyspnea Gastrointestinal: Gastrointestinal: Denies abdominal pain, Denies diarrhea, Denies nausea and Denies vomiting Genitourinary: Genitourinary: Denies dysuria Musculoskeletal: Musculoskeletal: Denies back pain, Denies myalgias and Denies arthralgias Integumentary/Breasts: Skin/Breast: Denies rash Neurologic: Denies focal weakness and Denies Sensory deficit (Neuro) Psychiatric: Psychiatric: Reports no additional psychiatric complaints and Reports as per HPI Endocrine: Endocrine: Denies cold intolerance, Denies fatigue, Denies flushing, Denies heat intolerance, Denies polyphagia, Denies polydipsia and Denies palpitations Hematologic/Lymphatic: Hematologic/Lymphatic: Reports no additional hematologic/lymphatic complaints and Reports as per HPI Allergic/Immunologic: Allergic/Immunologic: Reports no additional allergic/immunologic complaints and Reports as per HPI PMFSH Past Medical History Medical History Cataract Elevated troponin Essential hypertension Herpes simplex type 1 infection Hospital discharge follow-up Hypertensive urgency Preoperative clearance Surgical History Surgical History H/O cataract removal with insertion of prosthetic lens H/O eye surgery Family History Family History Sibling Family history of arthritis Social History Social History Smoking status: Former smoker Tobacco type: pipe Second hand tobacco smoke exposure: No Smoking end date: 07/21/79 Alcohol intake: current Drinks per week: 12 Substance use: never Substance use type: does not use Lack of Transportation: No Lack of Food: Never True Current Housing: I Have Housing Concerned About Future Housing: No Difficulty Paying Gas/Electric Bills: No Difficulty Paying for Meds: No Currently Unemployed: No Education: Bachelor's Degree Difficulty w/ Childcare or Family Car
[2023-10-03 21:56] LABS: Troponin I < 0.012 ng/mL (0.000-0.034)
[2023-10-03] MEDS: dilTIAZem 100 MG/100 ML 100 MG/100 ML BAG 10 MG IV CONT (23:26)
[2023-10-04] VITALS (17 sets, daily range): BP systolic 123–156; BP diastolic 63–83; PULSE 67–105; RESP 16–20; TEMP 36.1–36.4; O2SAT 97–100
[2023-10-04] MEDS: amLODIPine BESYLATE 5 MG TABLET 10 MG PO (08:28)
[2023-10-04] MEDS: dilTIAZem 100 MG/100 ML 100 MG/100 ML BAG 10 MG IV CONT (08:28)
[2023-10-04 10:29] LABS: Basophils Absolute Auto 0.1 K/mm3 (0.0-0.1); Basophils Percent Auto 0.6 % (0.2-1.2); Eosinophils Absolute Auto 0.1 K/mm3 (0-0.3); Eosinophils Percent Auto 1.4 % (0-4.4); Hematocrit 42.9 % (42.0-52.0); Hemoglobin 14.6 g/dL (14.0-18.0); Immature Granulocyte Absolute 0.04 K/mm3 (0.00-0.031); Immature Granulocyte Percent A 0.5 % (0-0.5); Lymphocytes Absolute Auto 1.94 K/mm3 (0.9-3.2); Lymphocytes Percent Auto 23.4 % (18.3-44.2); Mean Corpuscular Hemoglobin 32.4 pg (26-34); Mean Corpuscular Volume 95.3 fl (80-100); Mean Platelet Volume 8.7 fl (7.4-10.4); Monocytes Absolute Auto 0.6 K/mm3 (0.1-0.6); Monocytes Percent Auto 7.5 % (2.6-8.5); Neutrophils Absolute Auto 5.5 K/mm3 (1.3-6.7); Neutrophils Percent Auto 66.6 % (45.5-73.1); Platelet Count Result 303 k/mm3 (150-375); Red Cell Distribution Width 12.8 % (11.5-14.5); White Blood Count 8.3 K/mm3 (4.5-10.0)
[2023-10-04 10:42] LABS: Anion Gap 8 mmol/L (8-16); Blood Urea Nitrogen 21 mg/dL (9-20); Carbon Dioxide 24 mmol/L (22-30); Chloride 101 mmol/L (98-107); Estimated CRCL calculation 49 ml/min; Estimated Glomerular Filt Rate > 60; Glucose 138 mg/dL (65-110); Magnesium 1.9 mg/dL (1.6-2.3); Phosphorus 3.2 mg/dL (2.5-4.5); Potassium 4.2 mmol/L (3.4-5.0); Sodium 133 mmol/L (137-145)
--- NOTE | 2023-10-04 11:07 | PM.CNCAR ---
Assessment and Plan Assessment and plan (1) Atrial fibrillation with rapid ventricular response: Code(s): I48.91 - Unspecified atrial fibrillation Status: Acute Assessment and Plan: New diagnosis of atrial fibrillation for the patient. Discussed the diagnosis of atrial fibrillation with the patient and at bedside. Discussed causes of atrial fibrillation, signs and symptoms, implications of atrial fibrillation, management strategies, etc. Echocardiogram from December shows normal LVEF. TSH level normal. Pursue rate control strategy at this time. Wean off Diltiazem drip. Will start oral Metoprolol. Uptitrate Metoprolol as needed for rate control. [id number] is 3 for hypertension, age. Anticoagulation for stroke prophylaxis is indicated. No bleeding issues. Discussed rationale for anticoagulation, risks vs benefits. Patient agreeable to anticoagulation. Will start Xarelto. Needs outpatient sleep study. Outpatient follow up with us. (2) MARI (acute kidney injury): Code(s): N17.9 - Acute kidney failure, unspecified Status: Acute Assessment and Plan: Resolved now. Will resume home Lisinopril and Spironolactone. He was on 12.5mg of Spironolactone, but he hates cutting them in half, therefore, will just do 25mg of Spironolactone. (3) Essential hypertension: Code(s): I10 - Essential (primary) hypertension Status: Acute Assessment and Plan: Continue Amlodipine. Continue Lisinopril. He was on 12.5mg of Spironolactone, but he hates cutting them in half, therefore, will just do 25mg of Spironolactone. Plan Anticipate discharge hopefully tomorrow if we can get the Diltiazem drip weaned off today and ensure adequate rate control. History of Present Illness History of Present Illness Consult date/time: 10/04/23 11:07 Requesting physician: Reji Mcdonald MD Consult reason: atrial fibrillation Reason For Visit: new onset afib with rvr Narrative: We are consulted for atrial fibrillation with RVR. This is an 82 year old male with hypertension whom I last saw in December 2022 for hypertensive urgency. He presented to his PCP's office 10/03 for regular follow-up. He was noted to be tachycardic. EKG in office shows atrial fibrillation with RVR. No chest pain, palpitations, shortness of breath or other symptoms. He was sent to the ER. In the ER, he was started on Diltiazem drip, which did control his heart rates. Other workup showed MARI with SCr of 1.4 that has now resolved. Troponins are negative. TSH level is normal. Echocardiogram in December showed normal LVEF. This morning, he is rate controlled on tele. Feeling well otherwise. Review of Systems Review of Systems: All systems reviewed & are unremarkable except as noted in HPI and below (HPI) [facility] Past Medical History Medical History Cataract Elevated troponin Essential hypertension Herpes simplex type 1 infection Hospital discharge follow-up Hypertensive urgency Preoperative clearance Surgical History Surgical History H/O cataract removal with insertion of prosthetic lens H/O eye surgery Family History Family History Sibling Family history of arthritis Social History Social History Smoking status: Former smoker Tobacco type: pipe Second hand tobacco smoke exposure: No Smoking end date: 07/21/79 Alcohol intake: current Drinks per week: 12 Substance use: never Substance use type: does not use Lack of Transportation: No Lack of Food: Never True Current Housing: I Have Housing Concerned About Future Housing: No Difficulty Paying Gas/Electric Bills: No Difficulty Paying for Meds: No Currently Unemployed: No Education: Bachelor's Degree Difficulty w/ Childcare or Family Care: No Living arrangemen
[2023-10-04] MEDS: lisinopriL 20 MG TABLET 40 MG PO (12:40)
[2023-10-04] MEDS: METOPROLOL TARTRATE 50 MG TAB PO ×2 (12:40→22:05)
[2023-10-04] MEDS: SPIRONOLACTONE 25 MG TABLET PO (12:40)
[2023-10-04] MEDS: RIVAROXABAN 20 MG TABLET PO (17:21)
--- NOTE | 2023-10-04 19:37 | PM.IMPN ---
Progress Note: A&P Assessment and Plan (1) AMRI (acute kidney injury): Code(s): N17.9 - Acute kidney failure, unspecified Status: Acute (2) Atrial fibrillation with rapid ventricular response: Code(s): I48.91 - Unspecified atrial fibrillation Status: Acute (3) Atrial fibrillation with rapid ventricular response: Code(s): I48.91 - Unspecified atrial fibrillation Status: Acute (4) Hearing loss: Code(s): H91.90 - Unspecified hearing loss, unspecified ear Status: Acute (5) Essential hypertension: Code(s): I10 - Essential (primary) hypertension Status: Acute Plan Continue with current medications Continuous cardiopulmonary telemonitoring Cardiac enzymes were done x4 which are all negative Cardiology and myself spoke with the patient and answered questions regarding atrial fibrillation Patient started on metoprolol to be up titrated for rate control Continue to wean off on IV Cardizem Monitor renal function closely while on spironolactone Patient given 1 dose of subcu Lovenox in the ER Patient started on oral Xarelto as anticoagulation for stroke prophylaxis Encourage ambulation at the bedside DC planning in the next 1 or 2 days once patient is stable and cleared by Cardiology ? Patient seen and examined at bedside during my morning rounds ? Collaborated with patient's nurse at the bedside in detail and addressed all concerns ? Labs, electrolytes, radiology, investigations and test results reviewed ? Consult/Nursing/Ancilliary notes on the chart reviewed and appreciated ? Spoke with patient/family at the bedside and answered all the questions that they had Repeat labs in a.m. Electrolyte replacement as per protocol. Patient will be monitored very closely on the floor. Further recommendations as per the hospital course. Time Spent With Patient Time with patient: 25 - 35 minutes Subjective Date/time seen: 10/04/23 19:37 Interval history: Patient lying in bed, had questions about his new onset atrial fibrillation which were all answered by both myself and figure clerk. Complains of some palpitations off and on. No chest pain. Review of Systems Review of Systems: 14 systems were reviewed with pertinent positives and negatives per HPI. Except as documented in the HPI/progress notes, all other systems were reviewed and are negative. All systems reviewed & are unremarkable except as noted in HPI and below Exam Narrative: PHYSICAL EXAMINATION: Vital signs: Please see the chart General physical exam: 82 years old male lying in bed, appears to be a little tired and fatigued Head/eyes: Atraumatic, EOMI, PERRLA ENT: Moist mucous membranes, nasal passages clear Neck: Supple, full range of motion, trachea midline CVS: S1 + S2, irregularly irrregular rate and rhythm, no murmurs Respiratory: Bilaterally fair air entry in both lung oleary, mild B/L crackles, symmetric chest expansion, no distress Abdomen: Soft, non-tender, bowel sounds +ve, no organomegaly Extremities: No clubbing, no cyanosis, no edema, no calf tenderness Musculoskeletal: Moves all, adequate range of motion, no muscle spasms Skin: Warm, dry, no jaundice, no cyanosis Neurological: Awake, alert, oriented x 3, cranial nerves II-XII intact, no focal neurological deficits Psychiatric: Normal mood, non suicidal Objective Data Vital Signs Vital Signs: Vital Signs - 24 hr 10/03/23 20:39 10/03/23 20:00 10/03/23 20:00 Temperature 36.2 C L Pulse Rate 103 H 106 H 102 H Respiratory Rate 18 16 Blood Pressure 146/72 H Pulse Oximetry 97 98 Oxygen Delivery Room Air 10/03/23 22:00 10/03/23 22:18 10/03/23 23:26 Temperature Pulse Rate 103 H 142 H 94 Respiratory Rate Blood Pressure 138/94 H 140/74 Pulse Oximetry Oxygen Delivery 10/03/23 23:55 10/04/23 00:00 10/04/23 00:00 Temperature 36.2 C L Pulse Rate 89 79 72 Respiratory Rate 18 18 Blood Pressure 150/75 H
[2023-10-05] VITALS (13 sets, daily range): BP systolic 121–138; BP diastolic 71–80; PULSE 74–89; RESP 12–18; TEMP 36.2–37; O2SAT 87–99
[2023-10-05 04:49] LABS: Basophils Absolute Auto 0.1 K/mm3 (0.0-0.1); Basophils Percent Auto 0.6 % (0.2-1.2); Eosinophils Absolute Auto 0.3 K/mm3 (0-0.3); Eosinophils Percent Auto 2.6 % (0-4.4); Hematocrit 43.3 % (42.0-52.0); Hemoglobin 14.7 g/dL (14.0-18.0); Immature Granulocyte Absolute 0.05 K/mm3 (0.00-0.031); Immature Granulocyte Percent A 0.4 % (0-0.5); Lymphocytes Absolute Auto 3.17 K/mm3 (0.9-3.2); Lymphocytes Percent Auto 28.4 % (18.3-44.2); Mean Corpuscular HGB Conc 33.9 g/dl (32-36); Mean Corpuscular Hemoglobin 32.9 pg (26-34); Mean Corpuscular Volume 96.9 fl (80-100); Mean Platelet Volume 8.9 fl (7.4-10.4); Monocytes Absolute Auto 0.8 K/mm3 (0.1-0.6); Monocytes Percent Auto 6.8 % (2.6-8.5); Neutrophils Absolute Auto 6.8 K/mm3 (1.3-6.7); Neutrophils Percent Auto 61.2 % (45.5-73.1); Platelet Count Result 335 k/mm3 (150-375); Red Blood Count 4.47 M/mm3 (4.6-6.20); Red Cell Distribution Width 12.5 % (11.5-14.5); White Blood Count 11.2 K/mm3 (4.5-10.0)
[2023-10-05 05:09] LABS: Anion Gap 8 mmol/L (8-16); Blood Urea Nitrogen 25 mg/dL (9-20); Calcium 9.3 mg/dL (8.4-10.2); Carbon Dioxide 25 mmol/L (22-30); Chloride 101 mmol/L (98-107); Estimated CRCL calculation 42 ml/min; Estimated Glomerular Filt Rate 53; Glucose 95 mg/dL (65-110); Potassium 4.5 mmol/L (3.4-5.0); Sodium 134 mmol/L (137-145)
[2023-10-05] MEDS: lisinopriL 20 MG TABLET 40 MG PO (09:30)
[2023-10-05] MEDS: METOPROLOL TARTRATE 50 MG TAB PO (09:30)
[2023-10-05] MEDS: amLODIPine BESYLATE 5 MG TABLET 10 MG PO (09:30)
[2023-10-05] MEDS: SPIRONOLACTONE 25 MG TABLET PO (09:30)
--- NOTE | 2023-10-05 15:06 | PC.NURSE ---
Patient is verbally upset and would like to be discharged. Patient is stating that if cardiology does not come and see patient soon, that he will be leaving at 1600 . RN called and left voicemail with cardiology at 1500. RN to touch base with hospitalist.
--- NOTE | 2023-10-05 15:50 | PM.DS ---
DS: Admitting Diagnosis Discharge Date 10/05/23 Admitting Diagnosis new onset a fib DS: Discharge Diagnosis Discharge Diagnosis (1) Atrial fibrillation with rapid ventricular response: Code(s): I48.91 - Unspecified atrial fibrillation Status: Acute (2) MARI (acute kidney injury): Code(s): N17.9 - Acute kidney failure, unspecified Status: Acute (3) Leukocytosis: Code(s): D72.829 - Elevated white blood cell count, unspecified Status: Acute DS: Summary Hospital Course Hospital Course: 82M w/ PMH HTN presented from PCP office as he was found in a fib there. He was admitted with diltiazem gtt and cardiology was consulted. His a fib was successfully rate controlled with metoprolol 50mg po bid and transitioned off of dilt gtt. He had a mild MARI which resolved. His spironolactone was increased to 25mg qday. TSH normal. CHADs VASC high at 3 for HTN and age. He was started on Xarelto and is to follow up with cardiology. A repeat CBC is ordered for 2 days after d/c for leukocytosis w/o evidence of sepsis or toxicity. To follow up with PCP on this. More than 30 minutes spent on discharge planning and documentation. Pt was full code during his stay. Time Spent with Patient Time attestation: Total time spent providing and/or coordinating discharge services: Exam Const: General: comfortable and no acute distress Eyes: Pupils: Equal, round and reactive pupils present Neck: Neck: supple Resp: Effort & Inspection: normal respiratory effort Cardio: Rate: regular rate Rhythm: abnormal rhythm Heart sounds: no gallops, no murmurs and no rubs GI: GI Palp: Yes Soft to palpation Extrem: General: no edema DS: Data Data Completed and Pending Labs on day of discharge: Labs from last 24 hours 10/05/23 04:14 WBC 11.2 H RBC 4.47 L Hgb 14.7 Hct 43.3 MCV 96.9 MCH 32.9 MCHC 33.9 RDW 12.5 Plt Count 335 MPV 8.9 Immature Gran % (Auto) 0.4 Neut % (Auto) 61.2 Lymph % (Auto) 28.4 [place] % (Auto) 6.8 Eos % (Auto) 2.6 Baso % (Auto) 0.6 Lymph # (Auto) 3.17 [place] # (Auto) 0.8 H Eos # (Auto) 0.3 Baso # (Auto) 0.1 Abs Immat Gran (auto) 0.05 H Absolute Neuts (auto) 6.8 H Absolute Nucleated RBC 0.0 Nucleated RBC % 0.0 Sodium 134 L Potassium 4.5 Chloride 101 Carbon Dioxide 25 Anion Gap 8 BUN 25 H Creatinine 1.30 Estim Creat Clear Calc 42 Estimated GFR 53 L Glucose 95 Calcium 9.3 Discharge Plan Discharge Attending physician on discharge: Jewels Ewing Consulting providers: Denise Rodriguez Discharging Clinician: Jewels Ewing Patient Disposition: Home, Self-Care Activity: february shower Diet: heart healthy Stand Alone Forms: General Discharge Information Follow-up/Referrals: Denise Rodriguez APN-C [Advanced Practice Nurse] - (10/31/23 at 9:00. Arrive at 8:45) Dimitri Vásquez DO [Primary Care Provider] - 1 Week (new onset a fib. leukocytosis) Discharge Medications: New metoprolol tartrate 50 mg Tablet 50 mg PO Q12HR Qty: 90 1RF Xarelto 20 mg Tablet 20 mg PO DAILY@1700 Qty: 30 2RF spironolactone 25 mg Tablet 25 mg PO QAM Qty: 90 1RF Continued amlodipine 10 mg tablet 10 mg PO DAILY lisinopril 40 mg tablet 40 mg PO DAILY Qty: 90 0RF Discontinued spironolactone 25 mg tablet 12.5 mg PO DAILY Qty: 30 0RF Other Ambulatory Orders: Complete Blood Count with Diff (Routine) Timeframe: 2 Days Location: Determined by Patient Ordered By: Jewels Ewing Date of admission: 10/04/23 13:09 Primary Care Provider: Dimitri Vásquez Admitting Provider: Jorge Cameron Attending physician on admission: Reji Mcdonald Condition: Stable
[2023-10-05] MEDS: RIVAROXABAN 20 MG TABLET PO (16:26)
== END 2023-10-05 16:49 | disposition home or self-care (01) | DRG 309 ==
LOC: ANHED 15:08 → ANHIMU 16:27
PROVIDERS: Family Medicine; Admitting Provider Internal Medicine; Emergency Provider Emergency Medicine; PCP Internal Medicine; Visit Provider General Practice
DX: I48.91 Unspecified atrial fibrillation (principal); N17.9 Acute kidney failure, unspecified; D72.829 Elevated white blood cell count, unspecified; I10 Essential (primary) hypertension; H91.90 Unspecified hearing loss, unspecified ear; Z98.49 Cataract extraction status, unspecified eye; Z96.1 Presence of intraocular lens
CPT/HCPCS: 36415; 71045; 80048; 80053; 83735; 83880; 84100; 84443; 84484; 85025; 85610; 85730; 93005; 96365; 96366; 96372; 96375; 99285; A9270; G0378; J1650; J2060

== ENCOUNTER 2023-10-08 11:48 | Outpatient (CLI) | payer MEDICARE, SELFPAY ==
[2023-10-08 12:27] LABS: Basophils Absolute Auto 0.1 K/mm3 (0.0-0.1); Basophils Percent Auto 0.5 % (0.2-1.2); Eosinophils Absolute Auto 0.2 K/mm3 (0-0.3); Eosinophils Percent Auto 2.1 % (0-4.4); Hematocrit 42.2 % (42.0-52.0); Hemoglobin 14.6 g/dL (14.0-18.0); Immature Granulocyte Absolute 0.06 K/mm3 (0.00-0.031); Immature Granulocyte Percent A 0.6 % (0-0.5); Lymphocytes Absolute Auto 2.43 K/mm3 (0.9-3.2); Lymphocytes Percent Auto 23.9 % (18.3-44.2); Mean Corpuscular HGB Conc 34.6 g/dl (32-36); Mean Corpuscular Volume 95.5 fl (80-100); Mean Platelet Volume 9.2 fl (7.4-10.4); Monocytes Absolute Auto 0.8 K/mm3 (0.1-0.6); Monocytes Percent Auto 7.7 % (2.6-8.5); Neutrophils Absolute Auto 6.7 K/mm3 (1.3-6.7); Neutrophils Percent Auto 65.2 % (45.5-73.1); Platelet Count Result 400 k/mm3 (150-375); Red Blood Count 4.42 M/mm3 (4.6-6.20); Red Cell Distribution Width 12.6 % (11.5-14.5); White Blood Count 10.2 K/mm3 (4.5-10.0)
== END 2023-10-08 11:49 | disposition home or self-care (01) ==
PROVIDERS: PCP Internal Medicine; Visit Provider General Practice
DX: D72.829 Elevated white blood cell count, unspecified (principal)
CPT/HCPCS: 36415; 85025

== ENCOUNTER 2024-07-17 13:30 | Outpatient (CLI) | payer MEDICARE, SELFPAY ==
[2024-07-17 18:42] LABS: Basophils Absolute Auto 0.1 K/mm3 (0.0-0.1); Basophils Percent Auto 0.7 % (0.2-1.2); Eosinophils Absolute Auto 0.2 K/mm3 (0-0.3); Eosinophils Percent Auto 1.5 % (0-4.4); Hematocrit 43.3 % (42.0-52.0); Hemoglobin 13.3 g/dL (14.0-18.0); Immature Granulocyte Absolute 0.05 K/mm3 (0.00-0.031); Immature Granulocyte Percent A 0.5 % (0-0.5); Lymphocytes Absolute Auto 2.17 K/mm3 (0.9-3.2); Lymphocytes Percent Auto 21.2 % (18.3-44.2); Mean Corpuscular HGB Conc 30.7 g/dl (32-36); Mean Corpuscular Hemoglobin 32.4 pg (26-34); Mean Corpuscular Volume 105.4 fl (80-100); Mean Platelet Volume 8.8 fl (7.4-10.4); Monocytes Absolute Auto 0.8 K/mm3 (0.1-0.6); Monocytes Percent Auto 7.8 % (2.6-8.5); Neutrophils Percent Auto 68.3 % (45.5-73.1); Platelet Count Result 427 k/mm3 (150-375); Red Blood Count 4.11 M/mm3 (4.6-6.20); White Blood Count 10.3 K/mm3 (4.5-10.0)
[2024-07-17 19:12] LABS: Anion Gap 9 mmol/L (4-12); Blood Urea Nitrogen 28 mg/dL (9-20); Calcium 9.3 mg/dL (8.4-10.2); Carbon Dioxide 25 mmol/L (22-30); Chloride 98 mmol/L (98-107); Estimated Glomerular Filt Rate 45; Glucose 103 mg/dL (65-110); Potassium 5.4 mmol/L (3.4-5.0); Sodium 132 mmol/L (137-145)
== END 2024-07-17 13:31 | disposition home or self-care (01) ==
LOC: ANHGOSHLAB 13:31
PROVIDERS: PCP Internal Medicine; Visit Provider Clinical Nurse Specialist
DX: I48.91 Unspecified atrial fibrillation (principal)
CPT/HCPCS: 36415; 80048; 85025

== ENCOUNTER 2024-07-21 13:10 | Outpatient (CLI) | payer MEDICARE, SELFPAY ==
[2024-07-21 13:32] LABS: Basophils Absolute Auto 0.1 K/mm3 (0.0-0.1); Basophils Percent Auto 0.7 % (0.2-1.2); Eosinophils Absolute Auto 0.1 K/mm3 (0-0.3); Eosinophils Percent Auto 1.2 % (0-4.4); Hematocrit 40.5 % (42.0-52.0); Hemoglobin 13.5 g/dL (14.0-18.0); Immature Granulocyte Absolute 0.07 K/mm3 (0.00-0.031); Immature Granulocyte Percent A 0.8 % (0-0.5); Lymphocytes Absolute Auto 1.53 K/mm3 (0.9-3.2); Lymphocytes Percent Auto 17.3 % (18.3-44.2); Mean Corpuscular HGB Conc 33.3 g/dl (32-36); Mean Corpuscular Hemoglobin 32.4 pg (26-34); Mean Corpuscular Volume 97.1 fl (80-100); Mean Platelet Volume 8.3 fl (7.4-10.4); Monocytes Absolute Auto 0.7 K/mm3 (0.1-0.6); Monocytes Percent Auto 7.5 % (2.6-8.5); Neutrophils Absolute Auto 6.4 K/mm3 (1.3-6.7); Neutrophils Percent Auto 72.5 % (45.5-73.1); Platelet Count Result 417 k/mm3 (150-375); Red Blood Count 4.17 M/mm3 (4.6-6.20); Red Cell Distribution Width 12.9 % (11.5-14.5); White Blood Count 8.9 K/mm3 (4.5-10.0)
[2024-07-21 13:43] LABS: Anion Gap 10 mmol/L (4-12); Blood Urea Nitrogen 25 mg/dL (9-20); Calcium 9.1 mg/dL (8.4-10.2); Carbon Dioxide 24 mmol/L (22-30); Chloride 99 mmol/L (98-107); Estimated Glomerular Filt Rate 48; Glucose 110 mg/dL (65-110); Sodium 133 mmol/L (137-145)
== END 2024-07-21 13:11 | disposition home or self-care (01) ==
PROVIDERS: PCP Internal Medicine; Visit Provider Clinical Nurse Specialist
DX: R94.4 Abnormal results of kidney function studies (principal); D72.829 Elevated white blood cell count, unspecified; I10 Essential (primary) hypertension
CPT/HCPCS: 36415; 80048; 85025

== ENCOUNTER 2025-07-24 11:58 | Outpatient (CLI) | payer MEDICARE, SELFPAY ==
[2025-07-24 12:16] LABS: Hematocrit 39.9 % (42.0-52.0); Hemoglobin 12.2 g/dL (14.0-18.0); Immature Granulocyte Percent A 0.3 % (0-0.5); Lymphocytes Absolute Auto 2.39 K/mm3 (0.9-3.2); Mean Corpuscular HGB Conc 30.6 g/dl (32-36); Mean Corpuscular Hemoglobin 25.4 pg (26-34); Mean Corpuscular Volume 83.0 fl (80-100); Nucleated Red Blood Cells Absolute Auto 0.000 K/mm3 (0.0-0.012); Nucleated Red Blood Cells Perc 0.0 % (0.0-0.2); Platelet Count Result 394 k/mm3 (150-375); Red Blood Count 4.81 M/mm3 (4.6-6.20); White Blood Count 9.1 K/mm3 (4.5-10.0)
[2025-07-24 12:35] LABS: Alanine Aminotransferase 17 U/L (6-50); Albumin Level 4.4 g/dL (3.5-5.1); Alkaline Phosphatase 55 U/L (38-126); Anion Gap 6 mmol/L (4-12); Aspartate Amino Transferase 31 U/L (17-59); Bilirubin,Total 1.1 mg/dL (0.2-1.3); Blood Urea Nitrogen 20 mg/dL (9-20); Calcium 9.1 mg/dL (8.4-10.2); Carbon Dioxide 28 mmol/L (22-30); Chloride 100 mmol/L (98-107); Cholesterol 186 mg/dL (0-200); Estimated Glomerular Filt Rate 58; Glucose 103 mg/dL (65-110); HDL Direct 69 mg/dL; Potassium 5.8 mmol/L (3.4-5.0); Sodium 134 mmol/L (137-145); Total Protein 8.3 g/dL (6.3-8.2); Triglycerides 77 mg/dL (<150)
[2025-07-24 13:10] LABS: Thyroid Stimulating Hormone 4.120 uIU/mL (0.465-4.680)
[2025-07-24 13:29] LABS: Vitamin B12 264.0 pg/mL (239-931)
== END 2025-07-24 11:59 | disposition home or self-care (01) ==
LOC: ANHLAB 11:59
PROVIDERS: PCP Clinical Nurse Specialist; Visit Provider Clinical Nurse Specialist
DX: I48.11 Longstanding persistent atrial fibrillation (principal); I10 Essential (primary) hypertension; R94.4 Abnormal results of kidney function studies; D72.829 Elevated white blood cell count, unspecified; R53.83 Other fatigue
CPT/HCPCS: 36415; 80053; 80061; 82607; 84443; 85025

== ENCOUNTER 2025-07-28 13:42 | Outpatient (CLI) | payer MEDICARE, SELFPAY ==
--- OUTSIDE RECORDS SUMMARY | 2009-09-02 04:00 | XMS_ITS | Continuity of Care Document ---
Author Organization [facility] Address [address] [place] [address] utive [facility] [address] [place] [address] Phone Care Team Providers Care Clay Caster Name Role Phone Gloria Webber Unavailable Unavailable Procedures Procedure Date Eye Exam & Treatment Refraction Advance Directives Directive Yes / No Effective Date File Name No Information Encounters Encounter Description Practice Location Reason(s) For Visit Diagnoses Date Provider Providers Copied on Encounter [facility], [address] [place] [address] [address], [place], [place], [id number], [place] tel:[phone] [facility] [place] No Information [address]. [address] [facility] , [address], [place], [address], [place]. tel:[phone] Family History Family Member Type Diagnosis Age At Onset No Information Payers Payer name Insurance type Covered republican ID Authoriza tion(s) [employer] Plan CI [id number] Social History Type Description Quantity Date Captured Comments Sex Male Smoking Status No Information Chief Complaint And Reason For Visit No Information Reason For Referral Reason For Referral No Information History Of Present Illness Encounter Date Complaint History Of Prese nt Illness No Information Functional Status Date Functional Assessmen t No Information Instructions Date Instruction Additional Infor mation No Information Assessments Type Assessment Date No Information Patient Care Teams Name Effective Dates (start - stop) Status Members No Information
--- OUTSIDE RECORDS SUMMARY | 2025-07-28 13:57 | XMS_ITS | Encounter Summary ---
Author Organization [facility] Address 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
--- OUTSIDE RECORDS SUMMARY | 2025-07-28 13:57 | XMS_ITS | Encounter Summary ---
Author Organization [facility] Address 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
--- OUTSIDE RECORDS SUMMARY | 2025-07-28 13:57 | XMS_ITS | Encounter Summary ---
Author Organization [facility] Address 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
--- OUTSIDE RECORDS SUMMARY | 2025-07-28 13:57 | XMS_ITS | Encounter Summary ---
Author Organization [facility] Address 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
--- OUTSIDE RECORDS SUMMARY | 2025-07-28 13:57 | XMS_ITS | Encounter Summary ---
Author Organization [facility] Address 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
--- OUTSIDE RECORDS SUMMARY | 2025-07-28 13:57 | XMS_ITS | Clinical Summary ---
Author Organization [facility] Address [address] 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
--- OUTSIDE RECORDS SUMMARY | 2025-07-28 13:57 | XMS_ITS | Encounter Summary ---
Author Organization [facility] Address 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
--- OUTSIDE RECORDS SUMMARY | 2025-07-28 13:57 | XMS_ITS | Encounter Summary ---
Author Organization [facility] Address 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
[2025-07-28 14:27] LABS: Anion Gap 10 mmol/L (4-12); Blood Urea Nitrogen 16 mg/dL (9-20); Calcium 8.9 mg/dL (8.4-10.2); Carbon Dioxide 23 mmol/L (22-30); Chloride 99 mmol/L (98-107); Estimated Glomerular Filt Rate 56; Glucose 106 mg/dL (65-110); Potassium 4.7 mmol/L (3.4-5.0); Sodium 132 mmol/L (137-145)
== END 2025-07-28 13:43 | disposition home or self-care (01) ==
LOC: ANHLAB 13:44
PROVIDERS: PCP Clinical Nurse Specialist; Visit Provider Clinical Nurse Specialist
DX: E87.5 Hyperkalemia (principal)
CPT/HCPCS: 36415; 80048